=== PATIENT | male | born 2000 ===

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

== ENCOUNTER 2024-07-03 22:43 | Emergency (ER) | payer OTHER ==
[~2024-07-03] VITALS: Ht 170.2 cm; Wt 83.9 kg
[2024-07-03 22:57] VITALS: BP 139/75
== END 2024-07-04 01:55 | disposition home or self-care (01) ==
LOC: ER 22:43
DX: T78.40XA Allergy, unspecified, initial encounter (principal); Z53.29 Procedure and treatment not carried out because of patient's decision for other reasons

== ENCOUNTER 2024-07-04 09:08 | Emergency (ER) | payer OTHER ==
[~2024-07-04] VITALS: Ht 162.6 cm; Wt 90.7 kg
[~2024-07-04 09:08] MED LIST: Cough Syru100 MG/5 M PO; IBUP600 PO
[2024-07-04 10:01] VITALS: BP 142/97
[2024-07-04] MEDS ORDERED: Dexamethasone Sod Phos 10 MG/ML 1ML VIAL PO ONE (10:05)
[2024-07-04] MEDS ORDERED: DiphenhydrAMINE HCL 25 MG Cap PO ONE (10:05)
== END 2024-07-04 10:29 | disposition home or self-care (01) ==
LOC: ER 09:08
DX: L23.7 Allergic contact dermatitis due to plants, except food (principal); R22.0 Localized swelling, mass and lump, head
CPT/HCPCS: 99283; A9270; J1100